=== PATIENT | male | born 1985 | race Caucasian/White ===

== ENCOUNTER 2017-11-10 07:21 | Inpatient (IN) | payer OTHER ==
[~2017-11-10] VITALS: Ht 182.9 cm; Wt 68.4 kg
[~2017-11-10 07:21] MED LIST: ACET-1256; DAPT500I IV; INSDGIPEN SC; NVLGI
[2017-11-10] MEDS ORDERED: ONDANSETRON 8 MG/54 ML D5W IV STA (07:43)
[2017-11-10] MEDS ORDERED: SODIUM CHLORIDE 0.9% 1000ML 1,000 ML IV STA (07:43)
[2017-11-10] MEDS ORDERED: NovoLIN-R INSULIN PER UNIT CHARGE SQ STA (08:02)
--- NOTE | 2017-11-10 08:11 | DIAGNOSTIC IMAGING REPORT ---
CHEST ONE VIEW PORTABLE HISTORY: 32 years-old Male EVALUATE ALTERED MENTAL STATUS/WEAKNESS acute altered mental status COMPARISON: Chest radiographs 07/24/2016 TECHNIQUE: Portable AP view of the chest FINDINGS: The cardiomediastinal and hilar silhouettes are within normal limits. There is no pneumothorax, pleural effusion, focal airspace consolidation or overt pulmonary edema. The bones of the chest appear grossly intact. IMPRESSION: No acute process. The above report was generated using voice recognition software. It may contain grammatical, syntax or spelling errors. Electronically signed by: Jorge George M.D. 11/10/2017 8:10 AM Dictated Date/Time: 11/10/2017 8:10 AM
[2017-11-10] MEDS ORDERED: INSU100I SC (08:13)
[2017-11-10 08:21] LABS: BASO % 0.5 %; BASO ABS # 0.05 K/uL (0-0.2); HEMATOCRIT 34.2 % (42-52); HEMOGLOBIN 11.6 g/dL (14.0-18.0); IG# 0.04 K/uL (0.00-0.02); LYMPH % 15.8 %; MEAN CELL VOLUME 87.5 fL (80-100); MEAN CORPUSCULAR HEMOGLOBIN 29.7 pg (25-34); MEAN CORPUSCULAR HGB CONC 33.9 g/dl (32-36); MEAN PLATELET VOLUME 8.4 fL (7.4-10.4); MONO % 7.4 %; MONO ABS # 0.75 K/uL (0.11-0.59); NEUT % 73.9 %; PLATELET COUNT 339 K/uL (130-400); RED CELL DISTRIBUTION WIDTH CV 12.8 % (11.5-14.5); WHITE BLOOD COUNT 10.14 K/uL (4.8-10.8)
[2017-11-10 08:47] LABS: ALBUMIN 2.6 gm/dl (3.4-5.0); ALKALINE PHOSPHATASE 161 U/L (45-117); ALT/SGPT 54 U/L (12-78); AST/SGOT 31 U/L (15-37); BLOOD UREA NITROGEN 15 mg/dl (7-18); CALCIUM 8.9 mg/dl (8.5-10.1); CARBON DIOXIDE 27 mmol/L (21-32); CKMB 0.9 ng/ml (0.5-3.6); CREATININE 0.72 mg/dl (0.60-1.40); GLUCOSE 427 mg/dl (70-99); LIPASE 90 U/L (73-393); POTASSIUM 4.3 mmol/L (3.5-5.1); SODIUM 133 mmol/L (136-145); TOTAL PROTEIN 6.5 gm/dl (6.4-8.2)
[2017-11-10] MEDS ORDERED: CEFTRIAXONE SOD INJ 1 GM ADDVIAL IV STA (10:11)
--- NOTE | 2017-11-10 10:53 | DIAGNOSTIC IMAGING REPORT ---
ABD/PELVIS WITHOUT FOR STONE HISTORY: 32 years-old Male r/o ureteral stone acute bilateral flank pain with concern for renal calculi. COMPARISON: CT abdomen and pelvis 07/26/2016 TECHNIQUE: Multiple axial CT images of the abdomen and pelvis were obtained without contrast. A dose lowering technique was used consistent with the principals of ROBYN. FINDINGS: Minimal dependent subsegmental bibasilar atelectasis. There is no pneumatosis or pneumoperitoneum identified. Imaged inferior cardiac chambers are unremarkable. Trace pericardial effusion. Decreased attenuation of the cardiac blood pool suggests anemia. Indeterminate 6 mm low attenuating lesion of the hepatic dome is noted. Statistically this would favor a cyst or hemangioma. The liver is otherwise unremarkable. The spleen, pancreas and adrenal glands are within normal limits. The gallbladder is also unremarkable. There is mild dilation of the left ureter which extends to the level of the urinary bladder. No obstructing calculus or lesion identified. There is mild nonspecific bilateral perinephric stranding. Right kidney and right ureter are unremarkable. Mild/moderate circumferential wall thickening of the urinary bladder is noted with mild perivesicular stranding. The aorta is normal in course and caliber. There is no bulky adenopathy. Small sliding-type hiatal hernia is noted with circumferential wall thickening of the distal esophagus. There is no bowel obstruction identified. Mild nonspecific rectal wall thickening. Trace free fluid within the right hemipelvis. The appendix is not definitively identified. Soft tissues are unremarkable. Bones appear intact. IMPRESSION: 1. Mild dilation of the left ureter extending to the urinary bladder is noted without obstructing calculus or lesion identified. Differential considerations would include ureteritis or sequela of recently passed calculus. Additionally, there is wall thickening of the urinary bladder with mild perivesicular stranding suspicious for cystitis. These findings should be correlated with urinalysis. 2. Mild nonspecific free fluid of the right hemipelvis. 3. Small sliding-type hiatal hernia with wall thickening of the distal esophagus. The above report was generated using voice recognition software. It may contain grammatical, syntax or spelling errors. Electronically signed by: Jorge George M.D. 11/10/2017 10:52 AM Dictated Date/Time: 11/10/2017 10:44 AM
[2017-11-10] MEDS ORDERED: INSULIN HUMAN REGULAR SC SCH (11:00)
--- NOTE | 2017-11-10 11:53 | EMERGENCY ROOM VISIT NOTE ---
History Report prepared by Darrenibsu: Lucila Xiao Under the Supervision of: Dr. Tc Martin D.O. First contact with patient: 07:34 Chief Complaint: HYPERGLYCEMIA Stated Complaint: HIGH SUGAR, VOMITING, BACK PAIN Nursing Triage Summary: insulin dependant diabetic. does not check blood sugars. "I just dose myself with some. I never check my blood sugars." took 12 units after dinner last night History of Present Illness The patient is a 32 year old male who presents to the Emergency Room with complaints of intermittent vomiting beginning 12 hours ago. The patient reports nausea, vomiting, diarrhea, and lower back pain. His symptoms persisted throughout the night. He states that he has had numerous episodes of vomiting and 1-2 episodes of diarrhea. The patient is IDDM. He states that he does not check his sugars and just takes 12-15 units on insulin with each meal. He denies fevers, sore throat, rhinorrhea, cough, and abdominal pain. 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 A total of 10 systems reviewed and were otherwise negative. Past Medical & Surgical Medical Problems: (1) Chronic diarrhea (2) Complicated UTI (urinary tract infection) (3) DKA, type 1 (4) IDDM (insulin dependent diabetes mellitus) (5) MRSA (methicillin resistant Staphylococcus aureus) septicemia (6) Orchitis and epididymitis Family History No pertinent history stated. Social History Smoking Status: Never Smoker Marital Status: single Occupation Status: employed Current/Historical Medications Scheduled Insulin Lispro (Human) (Humalog), 1 DOSE SC UD Allergies Coded Allergies: No Known Allergies (Unverified , 11/10/17) Physical Exam Vital Signs Date Time Temp Pulse Resp B/P (MAP) Pulse Ox O2 Delivery O2 Flow Rate FiO2 11/10/17 12:14 113 11/10/17 11:50 106 18 114/62 95 Room Air 11/10/17 09:15 114 20 137/88 98 11/10/17 08:05 106 11/10/17 07:31 36.7 109 18 100/64 97 Room Air Physical Exam CONSTITUTIONAL/VITAL SIGNS: Reviewed / noted above. GENERAL: Non-toxic in appearance. INTEGUMENTARY: Warm, dry, and [place]. HEAD: Normocephalic. EYES: without scleral icterus or trauma. ENT/OROPHARYNX: clear and moist. LYMPHADENOPATHY/NECK: Is supple without lymphadenopathy or meningismus. RESPIRATORY: Lungs clear and equal. CARDIOVASCULAR: Regular rate and rhythm. GI/ABDOMEN: Soft and nontender. No organomegaly or pulsatile mass. No rebound or guarding. Normal bowel sounds. EXTREMITIES: Warm and well perfused. BACK: No CVA tenderness. NEUROLOGICAL: Intact without focal deficits. PSYCHIATRIC: normal affect. MUSCULOSKELETAL: Normally developed with good muscle tone. Medical Decision & Procedures ER Provider Diagnostic Interpretation: Radiology results as stated below per my review and radiologist interpretation: CHEST ONE VIEW PORTABLE HISTORY: 32 years-old Male EVALUATE ALTERED MENTAL STATUS/WEAKNESS acute altered mental status COMPARISON: Chest radiographs 07/24/2016 TECHNIQUE: Portable AP view of the chest FINDINGS: The cardiomediastinal and hilar silhouettes are within normal limits. There is no pneumothorax, pleural effusion, focal airspace consolidation or overt pulmonary edema. The bones of the chest appear grossly intact. IMPRESSION: No acute process. The above report was generated using voice recognition software. It may contain grammatical, syntax or spelling errors. Electronically signed by: Jorge George M.D. 11/10/2017 8:10 AM Dictated Date/Time: 11/10/2017 8:10 AM ABD/PELVIS WITHOUT FOR STONE HISTORY: 32 years-old Male r/o ureteral stone acute bilateral flank pain with concern for renal calculi. COMPARISON: CT abdomen and pelvis 07/26/2016 TECHNIQUE: Multiple axial CT images of the abdomen and pelvis were obtained without contrast. A dose lowering technique was used consistent with the principals of ROBYN. FINDINGS: Minimal dependent subsegmental bibasilar atelectasis. There is no pneumatosis or pneumoperitoneum identified. Imaged inferior cardiac chambers are unremarkable. Trace pericardial effusion. Decreased attenuation of the cardiac blood pool suggests anemia. Indeterminate 6 mm low attenuating lesion of the hepatic dome is noted. Statistically this would favor a cyst or hemangioma. The liver is otherwise unremarkable. The spleen, pancreas and adrenal glands are within normal limits. The gallbladder is also unremarkable. There is mild dilation of the left ureter which extends to the level of the urinary bladder. No obstructing calculus or lesion identified. There is mild nonspecific bilateral perinephric stranding. Right kidney and right ureter are unremarkable. Mild/moderate circumferential wall thickening of the urinary bladder is noted with mild perivesicular stranding. The aorta is normal in course and caliber. There is no bulky adenopathy. Small sliding-type hiatal hernia is noted with circumferential wall thickening of the distal esophagus. There is no bowel obstruction identified. Mild nonspecific rectal wall thickening. Trace free fluid within the right hemipelvis. The appendix is not definitively identified. Soft tissues are unremarkable. Bones appear intact. IMPRESSION: 1. Mild dilation of the left ureter extending to the urinary bladder is noted without obstructing calculus or lesion identified. Differential considerations would include ureteritis or sequela of recently passed calculus. Additionally, there is wall thickening of the urinary bladder with mild perivesicular stranding suspicious for cystitis. These findings should be correlated with urinalysis. 2. Mild nonspecific free fluid of the right hemipelvis. 3. Small sliding-type hiatal hernia with wall thickening of the distal esophagus. The above report was generated using voice recognition software. It may contain grammatical, syntax or spelling errors. Electronically signed by: Jorge George M.D. 11/10/2017 10:52 AM Dictated Date/Time: 11/10/2017 10:44 AM Laboratory Results 11/10/17 07:54 Red Blood Count 3.91, Mean Corpuscular Volume 87.5, Mean Corpuscular Hemoglobin 29.7, Mean Corpuscular Hemoglobin Concent 33.9, Mean Platelet Volume 8.4, Neutrophils (%) (Auto) 73.9, Lymphocytes (%) (Auto) 15.8, Monocytes (%) (Auto) 7.4, Eosinophils (%) (Auto) 2.0, Basophils (%) (Auto) 0.5, Neutrophils # (Auto) 7.50, Lymphocytes # (Auto) 1.60, Monocytes # (Auto) 0.75, Eosinophils # (Auto) 0.20, Basophils # (Auto) 0.05 11/10/17 07:54 Test 11/10/17 07:54 11/10/17 09:17 11/10/17 12:24 White Blood Count 10.14 K/uL (4.8-10.8) Red Blood Count 3.91 M/uL (4.7-6.1) Hemoglobin 11.6 g/dL (14.0-18.0) Hematocrit 34.2 % (42-52) Mean Corpuscular Volume 87.5 fL (80-100) Mean Corpuscular Hemoglobin 29.7 pg (25-34) Mean Corpuscular Hemoglobin Concent 33.9 g/dl (32-36) Platelet Count 339 K/uL (130-400) Mean Platelet Volume 8.4 fL (7.4-10.4) Neutrophils (%) (Auto) 73.9 % Lymphocytes (%) (Auto) 15.8 % Monocytes (%) (Auto) 7.4 % Eosinophils (%) (Auto) 2.0 % Basophils (%) (Auto) 0.5 % Neutrophils # (Auto) 7.50 K/uL (1.4-6.5) Lymphocytes # (Auto) 1.60 K/uL (1.2-3.4) Monocytes # (Auto) 0.75 K/uL (0.11-0.59) Eosinophils # (Auto) 0.20 K/uL (0-0.5) Basophils # (Auto) 0.05 K/uL (0-0.2) RDW Standard Deviation 41.0 fL (36.4-46.3) RDW Coefficient of Variation 12.8 % (11.5-14.5) Immature Granulocyte % (Auto) 0.4 % Immature Granulocyte # (Auto) 0.04 K/uL (0.00-0.02) Urine Color YELLOW Urine Appearance CLOUDY (CLEAR) Urine pH 5.5 (4.5-7.5) Urine Specific [place] 1.035 (1.000-1.030) Urine Protein 1+ (NEG) Urine Glucose (UA) 3+ (NEG) Urine Ketones 3+ (NEG) Urine Occult Blood 2+ (NEG) Urine Nitrite NEG (NEG) Urine Bilirubin NEG (NEG) Urine Urobilinogen NEG (NEG) Urine Leukocyte Esterase TRACE (NEG) Urine WBC (Auto) >30 /hpf (0-5) Urine RBC (Auto) >30 /hpf (0-4) Urine Hyaline Casts (Auto) 5-10 /lpf (0-5) Urine Epithelial Cells (Auto) 5-10 /lpf (0-5) Urine Bacteria (Auto) 3+ (NEG) Anion Gap 11.0 mmol/L (3-11) Est Creatinine Clear Calc Drug Dose 142.5 ml/min Estimated GFR () 143.1 Estimated GFR (Non- 123.4 BUN/Creatinine Ratio 21.3 (10-20) Calcium Level 8.9 mg/dl (8.5-10.1) Magnesium Level 1.9 mg/dl (1.8-2.4) Total Bilirubin 0.5 mg/dl (0.2-1) Direct Bilirubin < 0.1 mg/dl (0-0.2) Aspartate Amino Transf (AST/SGOT) 31 U/L (15-37) Alanine Aminotransferase (ALT/SGPT) 54 U/L (12-78) Alkaline Phosphatase 161 U/L (45-117) Total Creatine Kinase 108 U/L (39-308) Creatine Kinase MB 0.9 ng/ml (0.5-3.6) Creatine Kinase MB Ratio 0.8 (0-3.0) Total Protein 6.5 gm/dl (6.4-8.2) Albumin 2.6 gm/dl (3.4-5.0) Lipase 90 U/L (73-393) Beta-Hydroxybutyric Acid 37.43 mg/dL (0.2-2.81) Bedside Glucose 278 mg/dl (70-99) Laboratory results as stated above per my review. Medications Administered Medications (Trade) Dose Ordered Sig/Stephen Route Start Time Stop Time Status Last Admin Dose Admin Sodium Chloride 1,000 ml @ 999 mls/hr Q1H1M STAT IV 11/10/17 07:43 11/10/17 08:43 DC 11/10/17 07:58 999 MLS/HR Ondansetron HCl (Zofran 8mg Iv) 8 mg NOW STAT IV 11/10/17 07:43 11/10/17 07:46 DC 11/10/17 08:15 8 MG Insulin Human Regular (novoLIN-R U-100 PER UNIT) 6 units NOW STAT SQ 11/10/17 08:02 11/10/17 08:03 DC 11/10/17 08:10 6 UNITS Ceftriaxone Sodium (Rocephin Inj) 1 gm NOW STAT IV 11/10/17 10:11 11/10/17 10:12 DC 11/10/17 10:38 1 GM ECG Per My Interpretation Indication: other Rate (beats per minute): 105 Rhythm: sinus tachycardia Findings: no acute ischemic change, other (no ST elevations) ED Course 0734: Previous medical records were reviewed. The patient was evaluated in room A10. A complete history and physical examination was performed. 0743: Zofran 8 mg IV, NSS 1000 ml @ 999 mls/hr IV 0802: Insulin Human Regular 6 units SQ 1011: Rocephin 1 gm IV 1142: I reassessed the patient at this time. He is feeling better and resting comfortably. I discussed the results and treatment plan with the patient. I answered all pertaining questions that he had. He expressed understanding and verbalized agreement. 1148: I spoke with Dr. Joey Sierar. We discussed the patients case. The patient will be evaluated by the [facility] for further management. Medical Decision Differential diagnosis: Etiologies such as gastroenteritis, food borne illness, infections, appendicitis , diverticulitis, inflammatory bowel disease, obstruction, GI bleed, biliary pathology, as well as others were entertained. This is a 32-year-old male who presents to the ED with a chief complaint of high blood sugars, nausea, vomiting and a little diarrhea. The patient states that his symptoms started last night around 7 PM. He states that he has vomited about 4 times since that time and had one episode of diarrhea. He denies any abdominal pains. Denies any sore throat, upper respiratory symptoms , chest pains or fevers. He states that he does not check his blood sugar routinely. He does use regular insulin, 12-15 units before meals. He has been a diabetic, type I since 2003. The patient has no additional specific complaints. His vital signs revealed a slight tachycardia with a heart rate of 109. 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 The patient has a negative chest x-ray. EKG shows a sinus tachycardia rate of 105 CBC is normal, complete metabolic panel reveals a glucose of 427. Anion gap was normal. Lipase is negative. LFTs were normal. Urinalysis suggests UTI. A CT scan of the abdomen and pelvis reveals findings suggesting cystitis and ureteritis. The patient was given 6 units of subcutaneous insulin for his hyperglycemia. He was given IV fluids and IV Zofran as well as IV Rocephin. He did have some additional dry heaves during his stay despite the Zofran. He will be seen by the hospitalist service for further inpatient evaluation and care. Medication Reconcilliation Current Medication List: was personally reviewed by me Blood Pressure Screening Patient's blood pressure: Elevated blood pressure Blood pressure disposition: Referred to PCP Consults Time Called: 1141 Consulting Physician: Dr. Joey Sierra Returned Call: [address] Joey Sierra. We discussed the patients case. The patient will be evaluated by the [facility] for further management. Impression Primary Impression: UTI (urinary tract infection) Additional Impressions: Vomiting Type 1 diabetes Hyperglycemia Scribe Attestation The scribe's documentation has been prepared under my direction and personally reviewed by me in its entirety. I confirm that the note above accurately reflects all work, treatment, procedures, and medical decision making performed by me. Departure Information Dispostion Being Evaluated By Hospitalist Referrals No Doctor, Assigned (PCP) Patient Instructions My [facility] Problem Qualifiers
[2017-11-10] MEDS ORDERED: GLUCOSE 40% GEL 15 GM TUBE PO PRN (12:30)
[2017-11-10] MEDS ORDERED: ALUMINUM/MAGNESIUM/SIMETH (MAALOX MAX) 30 ML UDC PO PRN (12:30)
[2017-11-10] MEDS ORDERED: ONDANSETRON INJ 2 MG/ML 2 ML VIAL IV PRN ×2 (12:30)
[2017-11-10] MEDS ORDERED: DEXTROSE 50% 50 ML SYR IV PRN (12:30)
[2017-11-10] MEDS ORDERED: GLUCAGON FOR INJ 1 MG VIAL SQ PRN (12:30)
[2017-11-10] MEDS ORDERED: DC ALL PREVIOUSLY ORDERED DIABETES MEDS ONE (12:30)
[2017-11-10] MEDS ORDERED: ACETAMINOPHEN 325 MG TAB PO PRN (12:30)
[2017-11-10] MEDS ORDERED: POLYETHYLENE (MIRALAX) 17 GM PACK PO PRN (12:30)
[2017-11-10] MEDS ORDERED: MAGNESIUM HYDROXIDE SUSP 30 ML UDC PO PRN (12:30)
[2017-11-10] MEDS ORDERED: GLUCOSE 10 TABS/TUBE PO PRN (12:30)
[2017-11-10] MEDS ORDERED: ZOLPIDEM TARTRATE 5 MG TAB PO PRN ×2 (12:30)
[2017-11-10 12:55] VITALS: O2SAT 95; BMI 20.5
--- NOTE | 2017-11-10 12:58 | History and Physical ---
History & Physical Date & Time of Service: Nov 10, 2017 at 12:39 Chief Complaint: High Sugar, Vomiting, Back Pain Primary Care Physician: Jaz Bates D.O. History of Present Illness Source: patient, hospital records 32 years old man with IDDM type I since he was 18 years old. he is currently on insulin sliding scale only. he takes about 12-15 units on insulin with each meal 3 days ago he started feeling sick, has some burning sensation in urine. last night he vomited X 4 , no blood , no abdominal pain. he has a base line diarrhea X 10 every day , no blood. s/p colonoscopy and EGD in the past. lives w his mom he does not smoke or drink family Hx of DMI in his father at age of 18 Social History Smoking Status: Never Smoker Marital Status: single Housing status: lives with family Occupational Status: employed Allergies Coded Allergies: No Known Allergies (Unverified , 11/10/17) Home Medications Scheduled Insulin Lispro (Human) (Humalog), 1 DOSE SC UD Review of Systems Review of system Constitutional: No fever / no chills / no sweats / positive weakness and fatigue Eyes: no blurring of vision / no eye pain / no discharge / no redness ENT: no hearing loss / no epistaxis /no swallowing problems Respiratory: no cough / no wheezing / no SOB / no hemoptysis Cardiovascular: no Chest pain / no lower extremity edema / no palpitation Abdomen: no pain / no nausea / positive diarrhea and vomiting / no constipation Musculoskeletal: no joint pain / no muscle pain / no joint swelling Genitourinary: positive dysuria / no incontinence / no urinary retention Neurologic: no focal weakness / no numbness/tingling / no ataxia Psychiatric: no depression symptoms / no anxiety / no insomnia Endocrine: no excessive thirst / no excessive urination Hematologic: no abnormal bleeding / no bruising / no LN swelling Skin: No rash / no pallor Physical Exam Vital Signs Date Time Temp Pulse Resp B/P (MAP) Pulse Ox O2 Delivery O2 Flow Rate FiO2 11/10/17 12:14 113 11/10/17 11:50 106 18 114/62 95 Room Air 11/10/17 09:15 114 20 137/88 98 11/10/17 08:05 106 11/10/17 07:31 36.7 109 18 100/64 97 Room Air Physical examination General patient appears to be comfortable, not in acute distress HEENT: Atraumatic , normocephalic /no jaundice /no pallor /anicteric /no dry mucous membrane /normal external ear inspection Neck: Supple /no swelling /central trach Heart: S1/S2 normal/regular rate and rhythm/no gallop /no rub /no murmur Lungs: Clear to auscultation bilaterally/normal chest with expansion/no rhonchi/ no rales/no wheezing/no use of accessory muscles of respiration Abdomen: Soft/nontender/no guarding/no rebound/no organomegaly/no pulsatile mass Musculoskeletal: No swelling/no edema/no tenderness/normal range of motion Neuro exam: Awake alert oriented 3/cranial nerves II through XII appear to be intact/sensation intact/moves all extremities/no abnormal movements Psychiatric evaluation: No depressed mood/normal affect Skin: No rash on exposed skin area/no erythema Extremity: Normal pulse/no pitting edema/no clubbing or cyanosis Endocrine/lymphatic: No obvious lymphadenopathy /no lymphedema Diagnostics Laboratory Results Results Past 24 Hours Test 11/10/17 07:37 11/10/17 07:54 11/10/17 08:08 11/10/17 09:17 Range/Units Bedside Glucose 404 395 278 70-99 mg/dl White Blood Count 10.14 4.8-10.8 K/uL Red Blood Count 3.91 4.7-6.1 M/uL Hemoglobin 11.6 14.0-18.0 g/dL Hematocrit 34.2 42-52 % Mean Corpuscular Volume 87.5 80-100 fL Mean Corpuscular Hemoglobin 29.7 25-34 pg Mean Corpuscular Hemoglobin Concent 33.9 32-36 g/dl Platelet Count 339 130-400 K/uL Mean Platelet Volume 8.4 7.4-10.4 fL Neutrophils (%) (Auto) 73.9 % Lymphocytes (%) (Auto) 15.8 % Monocytes (%) (Auto) 7.4 % Eosinophils (%) (Auto) 2.0 % Basophils (%) (Auto) 0.5 % Neutrophils # (Auto) 7.50 1.4-6.5 K/uL Lymphocytes # (Auto) 1.60 1.2-3.4 K/uL Monocytes # (Auto) 0.75 0.11-0.59 K/uL Eosinophils # (Auto) 0.20 0-0.5 K/uL Basophils # (Auto) 0.05 0-0.2 K/uL RDW Standard Deviation 41.0 36.4-46.3 fL RDW Coefficient of Variation 12.8 11.5-14.5 % Immature Granulocyte % (Auto) 0.4 % Immature Granulocyte # (Auto) 0.04 0.00-0.02 K/uL Urine Color YELLOW Urine Appearance CLOUDY CLEAR Urine pH 5.5 4.5-7.5 Urine Specific [place] 1.035 1.000-1.030 Urine Protein 1+ NEG Urine Glucose (UA) 3+ NEG Urine Ketones 3+ NEG Urine Occult Blood 2+ NEG Urine Nitrite NEG NEG Urine Bilirubin NEG NEG Urine Urobilinogen NEG NEG Urine Leukocyte Esterase TRACE NEG Urine WBC (Auto) >30 0-5 /hpf Urine RBC (Auto) >30 0-4 /hpf Urine Hyaline Casts (Auto) 5-10 0-5 /lpf Urine Epithelial Cells (Auto) 5-10 0-5 /lpf Urine Bacteria (Auto) 3+ NEG Sodium Level 133 136-145 mmol/L Potassium Level 4.3 3.5-5.1 mmol/L Chloride Level 95 98-107 mmol/L Carbon Dioxide Level 27 21-32 mmol/L Anion Gap 11.0 3-11 mmol/L Blood Urea Nitrogen 15 7-18 mg/dl Creatinine 0.72 0.60-1.40 mg/dl Est Creatinine Clear Calc Drug Dose 142.5 ml/min Estimated GFR () 143.1 Estimated GFR (Non- 123.4 BUN/Creatinine Ratio 21.3 10-20 Random Glucose 427 70-99 mg/dl Calcium Level 8.9 8.5-10.1 mg/dl Magnesium Level 1.9 1.8-2.4 mg/dl Total Bilirubin 0.5 0.2-1 mg/dl Direct Bilirubin < 0.1 0-0.2 mg/dl Aspartate Amino Transf (AST/SGOT) 31 15-37 U/L Alanine Aminotransferase (ALT/SGPT) 54 12-78 U/L Alkaline Phosphatase 161 45-117 U/L Total Creatine Kinase 108 39-308 U/L Creatine Kinase MB 0.9 0.5-3.6 ng/ml Creatine Kinase MB Ratio 0.8 0-3.0 Total Protein 6.5 6.4-8.2 gm/dl Albumin 2.6 3.4-5.0 gm/dl Lipase 90 73-393 U/L Beta-Hydroxybutyric Acid 37.43 0.2-2.81 mg/dL Test 11/10/17 12:24 Range/Units Microbiology Results 11/10/17 Blood Culture, Ordered Pending 11/10/17 Blood Culture, Ordered Pending 11/10/17 Urine Culture, Received Pending Diagnostic Radiology IMPRESSION: 1. Mild dilation of the left ureter extending to the urinary bladder is noted without obstructing calculus or lesion identified. Differential considerations would include ureteritis or sequela of recently passed calculus. Additionally, there is wall thickening of the urinary bladder with mild perivesicular stranding suspicious for cystitis. These findings should be correlated with urinalysis. 2. Mild nonspecific free fluid of the right hemipelvis. 3. Small sliding-type hiatal hernia with wall thickening of the distal esophagus. Impression Assessment and Plan 32 years old man with IDDM type I since he was 18 years old. has chronic diarrhea presented to ED with vomiting and UTI Assessment Complicated UTI POA with possible left early pyelo gastritis/GERD w thickening of esophagus on CT scan IDDM type I , with uncontrolled blood sugar / hyperglycemia chronic diarrhea Plan: admit to med surge CT abd reviewed , mild dilatation of left ureter but no hydro, urinary bladder with mild perivesicular stranding confirming cystitis CTX/lactobacillus urine and blood Cx sliding scale insulin and extractions technician to adjust insulin regimen nurses educator consult zofran for vomiting pepcid for esophagitis/gastritis lovenox for dvt prophylaxis Resuscitation Status VTE Prophylaxis Will order VTE Prophylaxis: Yes
[2017-11-10] MEDS ORDERED: PHARMACY GLYCEMIC MGMT CONSULT PRN (13:30)
[2017-11-10 14:35] LABS: INFLUENZA A PCR Neg for Influ A (NEG); INFLUENZA B PCR Neg for Influ B (NEG)
--- NOTE | 2017-11-10 14:39 | Pharmacy Progress Note ---
Glycemic Control Intl Consult Date of Service Nov 10, 2017. Scope Glycemic Pharmacist consulted by Dr Gabriel on 11/10/17 for glycemic control and to write orders per [facility] inpatient glycemic control protocol Objective Weight (Kilograms): 68.400 Accuchecks BSG (last 24hrs): Test 11/10/17 07:37 11/10/17 07:54 11/10/17 08:08 11/10/17 09:17 Bedside Glucose 404 mg/dl (70-99) 395 mg/dl (70-99) 278 mg/dl (70-99) Random Glucose 427 mg/dl (70-99) Laboratory Data (last 24hrs) Test 11/10/17 07:54 11/10/17 12:24 Anion Gap 11.0 mmol/L BUN/Creatinine Ratio 21.3 Blood Urea Nitrogen 15 mg/dl Creatinine 0.72 mg/dl Potassium Level 4.3 mmol/L Sodium Level 133 mmol/L White Blood Count 10.14 K/uL Red Blood Count 3.91 M/uL Hemoglobin 11.6 g/dL Hematocrit 34.2 % Mean Corpuscular Volume 87.5 fL Mean Corpuscular Hemoglobin 29.7 pg Mean Corpuscular Hemoglobin Concent 33.9 g/dl Platelet Count 339 K/uL Mean Platelet Volume 8.4 fL Neutrophils (%) (Auto) 73.9 % Lymphocytes (%) (Auto) 15.8 % Monocytes (%) (Auto) 7.4 % Eosinophils (%) (Auto) 2.0 % Basophils (%) (Auto) 0.5 % Neutrophils # (Auto) 7.50 K/uL Lymphocytes # (Auto) 1.60 K/uL Monocytes # (Auto) 0.75 K/uL Eosinophils # (Auto) 0.20 K/uL Basophils # (Auto) 0.05 K/uL HbA1c Test 11/10/17 12:24 Recent Pertinent Medications Outpatient Anti-diabetic Regimen: * Humalog 10-15 units with lunch and dinner * A1c = 13.2 % 07/24/16 Risk Factors for Insulin Resistance: * Infection: UTI - currently on Rocephin * Diet: T1 DM Assessment & Plan ASSESSMENT: * Mr Nguyen is a 32 y/o M with a PMH of type 1 diabetes (diagnosed when he was 18 years old). I interviewed the patient whenever he was admitted. The patient denies taking Lantus at home. He states his physician (Dr Quinn in [place]) told him to stop it. He takes 10-15 units of Humalog with lunch and dinner ( does not really eat breakfast). The patient was previously hospitalized in July of 2016 for DKA.He received between 12-30 units of Lantus during that admission. The patient states he did not take the Lantus after that. He has not had an episode of DKA since. He rarely has hypoglycemia...did have one episode at nighttime but unsure what led to it. * Basically, patient takes at most 30 units of insulin a day and this keeps the patient out of DKA. Therefore, will start with 30 units of insulin per day and titrate upwards as appropriate. Divide this in half and will give Lantus 15 units now and then 15 daily starting tomorrow. Choose weight-based stress of 1- 2 for Novolog which also correlates with a total daily dose of 30 units. This is about 0.5 units/kg which is a reasonable starting point for a type 1 diabetic. Chose goal range of 140-180 mg/dL as do not want to be too aggressive with patient's insulin dosing (he appears to be sensitive as 6 units of regular decreased patient's blood sugar from 400 to 230 mg/dL). PLAN FOR INPATIENT GLYCEMIC CONTROL: * Basal insulin with LANTUS 15 units SQ now and then qAM * Correctional Insulin with NOVOLOG per scale ACHS or Q6hrs while NPO * Goal Range: Low 140 mg/dL - High 180 mg/dL * Correction Factor: 45 mg/dL/unit * Nutritional / Prandial insulin per carb ratio of 1 unit per 15 grams CHO consumed * Please note that the plan above was derived based on current level of insulin resistance and hospital stress. These recommendations are appropriate for inpatient admission only. Plan of care upon discharge will need to be reassessed to avoid potential outpatient hypo/hyperglycemia. Thank you.
[2017-11-10] MEDS: INSULIN ASPART 100 UNITS/ML 3 ML PEN SC SCH ×3 (14:48→21:03)
[2017-11-10] MEDS: INSULIN GLARGINE SOLOSTAR 100 UNITS/ML 3 ML PEN SC SCH (14:50)
[2017-11-10 15:36] LABS: INR 0.9 (0.9-1.1)
[2017-11-10 15:43] VITALS: BMI 20.5
[2017-11-10 16:12] VITALS: BP 103/69; PULSE 106; TEMP 36.8; O2SAT 99
[2017-11-10] MEDS: LACTOBACILLUS ACIDOPHILUS (FLORANEX) TAB PO SCH (16:21)
[2017-11-10] MEDS: FAMOTIDINE IV INJ 20 MG in SYRINGE 3 ML IV SCH (16:21)
[2017-11-10] MEDS: ENOXAPARIN 40 MG/0.4 ML SYR SQ SCH (21:00)
[2017-11-11 00:26] VITALS: BP 124/78; PULSE 98; TEMP 36.7; O2SAT 90
[2017-11-11] MEDS: FAMOTIDINE IV INJ 20 MG in SYRINGE 3 ML IV SCH ×2 (04:11→16:28)
[2017-11-11 06:48] LABS: HEMOGLOBIN A1C 12.2 % (4.5-5.6)
[2017-11-11 07:13] VITALS: BP 101/64; PULSE 93; TEMP 36.7; O2SAT 98
[2017-11-11] MEDS: LACTOBACILLUS ACIDOPHILUS (FLORANEX) TAB PO SCH ×3 (07:16→16:28)
[2017-11-11 08:06] LABS: BASO % 0.4 %; BASO ABS # 0.03 K/uL (0-0.2); EOS % 3.4 %; EOS ABS # 0.29 K/uL (0-0.5); HEMATOCRIT 32.6 % (42-52); HEMOGLOBIN 10.9 g/dL (14.0-18.0); IG# 0.03 K/uL (0.00-0.02); LYMPH % 21.3 %; LYMPH ABS # 1.81 K/uL (1.2-3.4); MEAN CELL VOLUME 88.6 fL (80-100); MEAN CORPUSCULAR HEMOGLOBIN 29.6 pg (25-34); MEAN CORPUSCULAR HGB CONC 33.4 g/dl (32-36); MONO ABS # 0.77 K/uL (0.11-0.59); NEUT % 65.5 %; NEUT ABS # 5.58 K/uL (1.4-6.5); PLATELET COUNT 336 K/uL (130-400); WHITE BLOOD COUNT 8.51 K/uL (4.8-10.8)
[2017-11-11] MEDS: INSULIN ASPART 100 UNITS/ML 3 ML PEN SC SCH ×4 (08:37→21:22)
[2017-11-11] MEDS: INSULIN GLARGINE SOLOSTAR 100 UNITS/ML 3 ML PEN SC SCH (08:38)
[2017-11-11 09:02] LABS: ALBUMIN 2.2 gm/dl (3.4-5.0); ALKALINE PHOSPHATASE 150 U/L (45-117); ALT/SGPT 42 U/L (12-78); AST/SGOT 27 U/L (15-37); BLOOD UREA NITROGEN 9 mg/dl (7-18); CALCIUM 8.5 mg/dl (8.5-10.1); CARBON DIOXIDE 28 mmol/L (21-32); CREATININE 0.52 mg/dl (0.60-1.40); GLUCOSE 173 mg/dl (70-99); LIPASE 82 U/L (73-393); PHOSPHORUS 2.8 mg/dl (2.5-4.9); POTASSIUM 3.7 mmol/L (3.5-5.1); SODIUM 136 mmol/L (136-145)
[2017-11-11] MEDS ORDERED: CEFTRIAXONE SOD INJ 1 GM in DEXTROSE 5% ADD-VANTAGE 50ML 50 ML IV SCH (11:00)
--- NOTE | 2017-11-11 12:40 | Hospitalist Progress Note ---
Hospitalist Progress Note Date of Service Nov 11, 2017. Subjective Pt evaluation today including: conversation w/ patient, physical exam, lab review, review of studies, review of inpatient medication list Voiding: no voiding problems Patient resting in bed. Feeling slightly improved since admission. Diffuse body aches. Eating and drinking OK. +chronic diarrhea- has had workup in the past which was unremarkable. epigastric burning- denies ETOH use, smoking history, excessive coffee, NSAID use, or h/o GERD. Patient denies any fever, chills, sweats, lightheadedness, dizziness, vision changes, CP, palpitations, edema, SOB, wheezing, cough, nausea, vomiting, diarrhea, urinary symptoms, melena, numbness/tingling, weakness, anxiety/ depression, active bleeding, or new skin discoloration/changes. Medications Current Inpatient Medications Medications (Trade) Dose Ordered Sig/Stephen Route Start Time Stop Time Status Last Admin Dose Admin Enoxaparin Sodium (Lovenox Inj) 40 mg Q24H SQ 11/10/17 21:00 12/10/17 20:59 Acetaminophen (Tylenol Tab) 650 mg Q4H PRN PO 11/10/17 12:30 12/10/17 12:29 Al Hydrox/Mg Hydrox/Simethicone (Maalox Max Susp) 15 ml Q4H PRN PO 11/10/17 12:30 12/10/17 12:29 Magnesium Hydroxide (Milk Of Magnesia Susp) 30 ml Q6H PRN PO 11/10/17 12:30 12/10/17 12:29 Polyethylene (Miralax Powder Packet) 17 gm DAILY PRN PO 11/10/17 12:30 12/10/17 12:29 Zolpidem Tartrate (Ambien Tab) 5 mg HSZ PRN PO 11/10/17 12:30 12/10/17 12:29 Ondansetron HCl (Zofran Inj) 4 mg Q6H PRN IV 11/10/17 12:30 12/10/17 12:29 Insulin Aspart (novoLOG ASPART) SLIDING SCALE If C... ACHS SC 11/10/17 14:30 12/10/17 14:29 11/11/17 08:37 1 UNITS Glucose (Glucose 40% Gel) 15-30 GRAMS 15 GRAMS... UD PRN PO 11/10/17 12:30 12/10/17 12:29 Glucose (Glucose Chew Tab) 4-8 Tablets 4 Tabl... UD PRN PO 11/10/17 12:30 12/10/17 12:29 Dextrose (Dextrose 50% 50ML Syringe) 25-50ML OF 50% DW IV FOR... UD PRN IV 11/10/17 12:30 12/10/17 12:29 Glucagon (Glucagon Inj) 1 mg UD PRN SQ 11/10/17 12:30 12/10/17 12:29 Miscellaneous Information (Consult Glycemic Management Pharmacy) 1 ea UD PRN N/A 11/10/17 13:30 12/10/17 13:29 Famotidine 20 mg/ Syringe 5 ml @ 2.5 mls/min Q12H IV 11/10/17 16:00 12/10/17 15:59 11/11/17 04:11 2.5 MLS/MIN Ceftriaxone Sodium 1 gm/ Dextrose 50 ml @ 100 mls/hr Q24H IV 11/11/17 11:00 11/21/17 10:59 11/11/17 10:34 100 MLS/HR Lactobacillus Acidophilus (Floranex Tab) 4 tab TIDM PO 11/10/17 17:00 12/10/17 17:59 11/11/17 11:31 4 TAB Insulin Glargine (Lantus Solostar Pen) 15 units DAILY SC 11/10/17 15:00 12/10/17 14:59 11/11/17 08:38 15 UNITS Objective Vital Signs Date Time Temp Pulse Resp B/P (MAP) Pulse Ox O2 Delivery O2 Flow Rate FiO2 11/11/17 08:00 Room Air 11/11/17 07:13 36.7 93 16 101/64 (76) 98 Room Air 11/11/17 00:26 36.7 98 18 124/78 (93) 90 Room Air 11/11/17 00:01 Room Air 11/10/17 16:12 36.8 106 18 103/69 (80) 99 Room Air 11/10/17 16:00 Room Air 11/10/17 12:55 95 Room Air Physical Exam General Appearance: WD/WN, no apparent distress Eyes: normal inspection, PERRL ENT: hearing grossly normal Neck: supple Respiratory/Chest: lungs clear, no respiratory distress, no accessory muscle use Cardiovascular: regular rate, rhythm Abdomen: normal bowel sounds, non tender, soft Extremities: no pedal edema, no calf tenderness Neurologic/Psychiatric: alert, normal mood/affect, oriented x 3 Skin: normal color, warm/dry, no rash Laboratory Results Last 24 Hours Test 11/10/17 12:43 11/10/17 13:15 11/10/17 14:40 11/10/17 16:46 Bedside Glucose 233 mg/dl 359 mg/dl 178 mg/dl Influenza Type A (RT-PCR) Neg for Influ A Influenza Type B (RT-PCR) Neg for Influ B Test 11/10/17 19:38 11/11/17 06:05 11/11/17 07:18 11/11/17 07:47 Bedside Glucose 135 mg/dl 175 mg/dl White Blood Count 8.51 K/uL Red Blood Count 3.68 M/uL Hemoglobin 10.9 g/dL Hematocrit 32.6 % Mean Corpuscular Volume 88.6 fL Mean Corpuscular Hemoglobin 29.6 pg Mean Corpuscular Hemoglobin Concent 33.4 g/dl Platelet Count 336 K/uL Mean Platelet Volume 8.0 fL Neutrophils (%) (Auto) 65.5 % Lymphocytes (%) (Auto) 21.3 % Monocytes (%) (Auto) 9.0 % Eosinophils (%) (Auto) 3.4 % Basophils (%) (Auto) 0.4 % Neutrophils # (Auto) 5.58 K/uL Lymphocytes # (Auto) 1.81 K/uL Monocytes # (Auto) 0.77 K/uL Eosinophils # (Auto) 0.29 K/uL Basophils # (Auto) 0.03 K/uL RDW Standard Deviation 42.0 fL RDW Coefficient of Variation 13.0 % Immature Granulocyte % (Auto) 0.4 % Immature Granulocyte # (Auto) 0.03 K/uL Sodium Level 136 mmol/L Potassium Level 3.7 mmol/L Chloride Level 102 mmol/L Carbon Dioxide Level 28 mmol/L Anion Gap 6.0 mmol/L Blood Urea Nitrogen 9 mg/dl Creatinine 0.52 mg/dl Est Creatinine Clear Calc Drug Dose 197.3 ml/min Estimated GFR () > 150.0 Estimated GFR (Non- 141.1 BUN/Creatinine Ratio 17.6 Random Glucose 173 mg/dl Calcium Level 8.5 mg/dl Phosphorus Level 2.8 mg/dl Magnesium Level 2.1 mg/dl Total Bilirubin 0.2 mg/dl Aspartate Amino Transf (AST/SGOT) 27 U/L Alanine Aminotransferase (ALT/SGPT) 42 U/L Alkaline Phosphatase 150 U/L Total Protein 6.0 gm/dl Albumin 2.2 gm/dl Globulin 3.8 gm/dl Albumin/Globulin Ratio 0.6 Lipase 82 U/L Test 11/11/17 11:24 Bedside Glucose 164 mg/dl Assessment and Plan 32 year-old man with IDDM type I since he was 18 years old. Has chronic diarrhea presented to ED with vomiting and UTI. T1DM w/ hyperglycemia- hgbA1c 12.2%: - Outpatient regimen: Humalog sliding scale, 12-15 u w/ each meal - Pharmacy consulted for glycemic management- Lantus 15 u daily and BSG ACHS w/ ISS - deflash and wash operator consulted UTI POA: IV Rocephin pending UCx N/V, acute on chronic diarrhea, ?secondary to uncontrolled DM vs infectious vs viral process: - Influenza negative - IV Zofran PRN for nausea - BCx pending - C.diff negative; Stool cultures and Giardia pending - Floranex 4 tabs TID - Stool culture, fecal fat, H. pylori ag, celiac panel all negative in the past for diarrhea workup - Per records, had negative colonoscopy a few years ago and possible PUD on EGD Gastritis, GERD w/ thickening of esophagus on CT scan: IV Pepcid Chronic anemia- baseline hgb 10.0- STABLE DVT prophylaxis: Lovenox SQ daily Code status: LEVEL I, FULL Dispo: Discharge to home once medically stable, hopefully in the next 1-2 days- no discharge needs anticipated
[2017-11-11] MEDS ORDERED: VANCOMYCIN CONSULT ACTIVE PRN (13:30)
--- NOTE | 2017-11-11 13:36 | Pharmacy Progress Note ---
Pharmacy Glycemic Short Note 2 Date of Service Nov 11, 2017. OUTPATIENT ANTIDIABETIC REGIMEN: * Humalog 10-15 units with lunch and dinner Test 11/10/17 07:54 Hemoglobin A1c 12.2 % (4.5-5.6) H Test 11/10/17 14:40 11/10/17 16:46 11/10/17 19:38 11/11/17 07:18 Bedside Glucose 359 mg/dl (70-99) 178 mg/dl (70-99) 135 mg/dl (70-99) 175 mg/dl (70-99) Test 11/11/17 07:47 11/11/17 11:24 Random Glucose 173 mg/dl (70-99) Bedside Glucose 164 mg/dl (70-99) ASSESSMENT: * A1c resulted today, 12.2%, will continue goal range of 140-180mg/dl as EAG = 303mg/dl at home * Blood sugars at goal, no changes needed today * Pt remains on IV Rocephin for complicated UTI PLAN FOR INPATIENT GLYCEMIC CONTROL: * Basal insulin * Lantus 15 units SQ daily * Bolus insulin * NovoLog per scale ACHS or Q6hrs while NPO * Goal Range: Low 140 mg/dL - High 180 mg/dL * Correction Factor: 45 mg/dL/unit * Nutritional / Prandial insulin per carb ratio of 1 unit per 15 grams CHO consumed PLAN FOR DISCHARGE: * Recommend starting Lantus 15 units daily * Continue Novolog 10-15 units with meals
[2017-11-11] MEDS ORDERED: VANCOMYCIN INJ 1,750 MG in SODIUM CHLORIDE 0.9% 500ML 500 ML IV SCH (14:00)
[2017-11-11] MEDS ORDERED: VANCOMYCIN INJ 1,700 MG in SODIUM CHLORIDE 0.9% 500ML 500 ML IV SCH (14:00)
--- NOTE | 2017-11-11 14:03 | Pharmacy Progress Note ---
Pharmacy Antibiotic Consult Date of Service: Nov 11, 2017. Pharmacy Dosing Scope Pharmacy is consulted to initiate Vancomycin IV dosing therapy, order appropriate labs and adjust drug dose/frequency. Subjective The patient is a 32 year old male admitted on Nov 10, 2017 at 12:29 with complicated UTI and hyperglycemia. Objective Height (Feet): 6 Height (Inches): 0.00 Weight (Kilograms): 68.400 Lab Results (24hrs): Test 11/11/17 06:05 11/11/17 07:18 11/11/17 07:47 11/11/17 11:24 Bedside Glucose 175 mg/dl (70-99) 164 mg/dl (70-99) White Blood Count 8.51 K/uL (4.8-10.8) Red Blood Count 3.68 M/uL (4.7-6.1) Hemoglobin 10.9 g/dL (14.0-18.0) Hematocrit 32.6 % (42-52) Mean Corpuscular Volume 88.6 fL (80-100) Mean Corpuscular Hemoglobin 29.6 pg (25-34) Mean Corpuscular Hemoglobin Concent 33.4 g/dl (32-36) Platelet Count 336 K/uL (130-400) Mean Platelet Volume 8.0 fL (7.4-10.4) Neutrophils (%) (Auto) 65.5 % Lymphocytes (%) (Auto) 21.3 % Monocytes (%) (Auto) 9.0 % Eosinophils (%) (Auto) 3.4 % Basophils (%) (Auto) 0.4 % Neutrophils # (Auto) 5.58 K/uL (1.4-6.5) Lymphocytes # (Auto) 1.81 K/uL (1.2-3.4) Monocytes # (Auto) 0.77 K/uL (0.11-0.59) Eosinophils # (Auto) 0.29 K/uL (0-0.5) Basophils # (Auto) 0.03 K/uL (0-0.2) RDW Standard Deviation 42.0 fL (36.4-46.3) RDW Coefficient of Variation 13.0 % (11.5-14.5) Immature Granulocyte % (Auto) 0.4 % Immature Granulocyte # (Auto) 0.03 K/uL (0.00-0.02) Sodium Level 136 mmol/L (136-145) Potassium Level 3.7 mmol/L (3.5-5.1) Chloride Level 102 mmol/L (98-107) Carbon Dioxide Level 28 mmol/L (21-32) Anion Gap 6.0 mmol/L (3-11) Blood Urea Nitrogen 9 mg/dl (7-18) Creatinine 0.52 mg/dl (0.60-1.40) Est Creatinine Clear Calc Drug Dose 197.3 ml/min Estimated GFR () > 150.0 Estimated GFR (Non- 141.1 BUN/Creatinine Ratio 17.6 (10-20) Random Glucose 173 mg/dl (70-99) Calcium Level 8.5 mg/dl (8.5-10.1) Phosphorus Level 2.8 mg/dl (2.5-4.9) Magnesium Level 2.1 mg/dl (1.8-2.4) Total Bilirubin 0.2 mg/dl (0.2-1) Aspartate Amino Transf (AST/SGOT) 27 U/L (15-37) Alanine Aminotransferase (ALT/SGPT) 42 U/L (12-78) Alkaline Phosphatase 150 U/L (45-117) Total Protein 6.0 gm/dl (6.4-8.2) Albumin 2.2 gm/dl (3.4-5.0) Globulin 3.8 gm/dl (2.5-4.0) Albumin/Globulin Ratio 0.6 (0.9-2) Lipase 82 U/L (73-393) Micro Results: RUN DATE: 11/11/17 [facility] PAGE 1 RUN TIME: 1256 Specimen Inquiry PATIENT: TAWNYA SPAIN NANCY LOC: [id number] U # : [id number] AGE/SX: 32/M ROOM: [facility] REG : 11/10/[address]: Darion Farris MD, PhD : 1985 BED: 1 DIS : STATUS: ADM IN TLOC: SPEC #: [id number] VICKY: 11/10/17 STATUS: RES REQ #: [id number] RECD: 11/10/[address]: Tc Martin D.O. SOURCE: UR, CC ENTR: 11/10/[address]: Jen Turner, Assigned SPDESC: ORDERED: CULTURE URCLEAN Procedure Result Verified Site URINE CULTURE Preliminary 11/11/17-1256 Organism 1 STAPHYLOCOCCUS AUREUS COLONY COUNT >100,000 CFU/ml SENS SENSITIVITY TO FOLLOW Recent Pertinent Medications Rocephin 1g IV daily x 2 doses Assessment & Plan Complicated UTI, Urine culture growing Staph Aureus, stop Rocephin and begin Vancomycin. Loading dose: Vancomycin 1750 mg (25mg/kg) IV X 1 dose then: Vancomycin 1250 mg (18mg/kg) IV every 6 hours. -pt was on this dose 2 years ago, when renal function and weight were the same, with therapeutic levels, so I will begin here. Goal trough level estimate: between 15 - 20 mcg/mL. Trough level has been ordered for: prior to 0800 dose, this will be after pt has received 3 total doses. Pharmacy will continue to follow and will adjust dose/frequency as necessary. Thank you
[2017-11-11 14:37] VITALS: Ht 182.9 cm; Wt 68.4 kg
[2017-11-11 15:16] VITALS: BP 101/65; PULSE 101; TEMP 36.4; O2SAT 100
[2017-11-11] MEDS: VANCOMYCIN INJ 1,250 MG in SODIUM CHLORIDE 0.9% 250ML 250 ML IV SCH (19:57)
[2017-11-11] MEDS: ENOXAPARIN 40 MG/0.4 ML SYR SQ SCH (21:26)
[2017-11-11 23:29] VITALS: BP 118/77; PULSE 94; TEMP 37.7; O2SAT 97
[2017-11-12] MEDS: VANCOMYCIN INJ 1,250 MG in SODIUM CHLORIDE 0.9% 250ML 250 ML IV SCH ×3 (01:57→13:56)
[2017-11-12] MEDS: FAMOTIDINE IV INJ 20 MG in SYRINGE 3 ML IV SCH ×2 (04:47→15:48)
[2017-11-12 07:23] VITALS: BP 138/88; PULSE 96; TEMP 36.6; O2SAT 99
[2017-11-12] MEDS ORDERED: VANCOMYCIN TROUGH ONE (07:30)
[2017-11-12] MEDS: LACTOBACILLUS ACIDOPHILUS (FLORANEX) TAB PO SCH ×3 (08:07→16:37)
[2017-11-12] MEDS: INSULIN ASPART 100 UNITS/ML 3 ML PEN SC SCH ×4 (08:21→21:27)
[2017-11-12] MEDS: INSULIN GLARGINE SOLOSTAR 100 UNITS/ML 3 ML PEN SC SCH (08:22)
[2017-11-12] MEDS ORDERED: INSULIN GLARGINE SOLOSTAR 100 UNITS/ML 3 ML PEN SC ONE (08:30)
--- NOTE | 2017-11-12 10:15 | DIAGNOSTIC IMAGING REPORT ---
(RENAL)RETROPERITON COMP HISTORY: Flank pain uti, pyelo, to see stone /blockage? COMPARISON: CT 11/10/2017 FINDINGS: Right kidney: Maximum dimension 14.8 cm. Mild fullness of renal pelvis. No evidence for kamlesh hydronephrosis. Normal corticomedullary differentiation and cortical thickness. Left kidney: Maximum dimension 14.1 cm. Mild fullness of the renal pelvis. No evidence for kamlesh hydronephrosis. Normal corticomedullary differentiation and cortical thickness. Bladder: No bladder wall thickening. The bilateral ureteral jets were identified. IMPRESSION: Mild fullness of the renal pelvis bilaterally. No evidence for hydronephrosis. The above report was generated using voice recognition software. It may contain grammatical, syntax or spelling errors. Electronically signed by: Lucas Olivarez M.D. 11/12/2017 10:14 AM Dictated Date/Time: 11/12/2017 10:12 AM
--- NOTE | 2017-11-12 12:20 | Urology Consultation ---
History General Date of Service: Nov 12, 2017. Chief Complaint: UTI Primary Care Physician: Jaz Bates D.O. Pt seen a urologist before?: No History of Present Illness 32 yo male admitted to [facility] with c/o complicated UTI. The pt reports several days of dysuria and n/v. He is a type 1 diabetic, and reports his glucose had been in the 300s prior to admission. Blood cultures preliminarily negative. UC&S preliminarily growing staph aureus. The pt reports a hx of 1 other UTI in the past. CT findings showing some dilation of the left ureter and pervesicular stranding without evidence for stone. Imaging Imaging: CT, Ultrasound Laboratory Last 24 Hours Test 11/11/17 16:12 11/11/17 20:31 11/12/17 07:48 11/12/17 08:10 Bedside Glucose 224 mg/dl 170 mg/dl 267 mg/dl Vancomycin Level Trough 14.8 mcg/ml Test 11/12/17 11:40 Bedside Glucose 88 mg/dl Problem List Medical Problems: (1) Hyperglycemia Status: Acute (2) Type 1 diabetes Status: Acute (3) UTI (urinary tract infection) Status: Acute (4) Vomiting Status: Acute Past History diabetes (IDDM) Past Surgical History: no surgical history Family History family hx of DMI in father at the age of 18 Social History Hx Tobacco Use In Past Year?: No Smoking: non-smoker Alcohol: no current use Drug use: none Marital status: single Housing status: lives with family Occupation status: employed History of MDRO Yes Type of MDRO: MRSA Allergies Coded Allergies: No Known Allergies (Unverified , 11/10/17) Medications Home Medications: Home Meds and Scripts Medications Dose Route/Sig Max Daily Dose Days Date Category Humalog (Insulin Lispro (Human)) 100 Unit/Ml Inj 1 Dose SC UD 11/10/17 Reported Inpatient Medications: Current Inpatient Medications Medications (Trade) Dose Ordered Sig/Stephen Route Start Time Stop Time Status Last Admin Dose Admin Enoxaparin Sodium (Lovenox Inj) 40 mg Q24H SQ 11/10/17 21:00 12/10/17 20:59 11/11/17 21:26 40 MG Acetaminophen (Tylenol Tab) 650 mg Q4H PRN PO 11/10/17 12:30 12/10/17 12:29 Al Hydrox/Mg Hydrox/Simethicone (Maalox Max Susp) 15 ml Q4H PRN PO 11/10/17 12:30 12/10/17 12:29 Magnesium Hydroxide (Milk Of Magnesia Susp) 30 ml Q6H PRN PO 11/10/17 12:30 12/10/17 12:29 Polyethylene (Miralax Powder Packet) 17 gm DAILY PRN PO 11/10/17 12:30 12/10/17 12:29 Zolpidem Tartrate (Ambien Tab) 5 mg HSZ PRN PO 11/10/17 12:30 12/10/17 12:29 Ondansetron HCl (Zofran Inj) 4 mg Q6H PRN IV 11/10/17 12:30 12/10/17 12:29 Insulin Aspart (novoLOG ASPART) SLIDING SCALE If C... ACHS SC 11/10/17 14:30 12/10/17 14:29 11/12/17 08:21 4 UNITS Glucose (Glucose 40% Gel) 15-30 GRAMS 15 GRAMS... UD PRN PO 11/10/17 12:30 12/10/17 12:29 Glucose (Glucose Chew Tab) 4-8 Tablets 4 Tabl... UD PRN PO 11/10/17 12:30 12/10/17 12:29 Dextrose (Dextrose 50% 50ML Syringe) 25-50ML OF 50% DW IV FOR... UD PRN IV 11/10/17 12:30 12/10/17 12:29 Glucagon (Glucagon Inj) 1 mg UD PRN SQ 11/10/17 12:30 12/10/17 12:29 Miscellaneous Information (Consult Glycemic Management Pharmacy) 1 ea UD PRN N/A 11/10/17 13:30 12/10/17 13:29 Famotidine 20 mg/ Syringe 5 ml @ 2.5 mls/min Q12H IV 11/10/17 16:00 12/10/17 15:59 11/12/17 04:47 2.5 MLS/MIN Lactobacillus Acidophilus (Floranex Tab) 4 tab TIDM PO 11/10/17 17:00 12/10/17 17:59 11/12/17 11:39 4 TAB Vancomycin HCl 1250 mg/Sodium Chloride 275 ml @ 125 mls/hr Q6H IV 11/11/17 20:00 11/21/17 19:59 11/12/17 08:06 125 MLS/HR Miscellaneous Information (Consult) 1 ea UD PRN N/A 11/11/17 13:30 12/11/17 13:29 Insulin Glargine (Lantus Solostar Pen) 20 units DAILY SC 11/13/17 08:00 12/13/17 07:59 11/12/17 08:22 20 UNITS Review of Systems Review of Systems Constitutional: No fever, No chills Eyes: No blurred vision Neurological: No dizzy Endocrine: No excessive thirst Gastrointestinal: No abdominal pain, No nausea, No vomiting Cardiovascular: No chest pain Respiratory: No shortness of breath Skin: No rash Musculoskeletal: No back pain Male : + painful urination Physical Exam Vital Signs: Vital Signs Past 12 Hours Date Time Temp Pulse Resp B/P (MAP) Pulse Ox O2 Delivery O2 Flow Rate FiO2 11/12/17 08:00 Room Air 11/12/17 07:23 36.6 96 18 138/88 (105) 99 Room Air Physical Exam: General Appearance: no apparent distress Eyes: bilateral eyes normal inspection ENT: hearing grossly normal Neck: no JVD Respiratory/Chest: no respiratory distress, no accessory muscle use Cardiovascular: no JVD Extremities: normal inspection Neurologic/Psychiatric: alert, normal mood/affect, oriented x 3 Skin: normal color Assessment & Plan Assessment & Plan A/P: Complicated UTI AFVSS. Suspect CT and renal u/s findings most consistent with inflammation secondary to UTI. No evidence for obstructing stone on CT. Consider transitioning him to 10-14 days of Bactrim DS prior to d/c home. Will check bladder scans while inpatient to ensure his bladder is emptying well. Place swann catheter for PVR >250ml. Thanks for the consult. Will continue to follow along with primary service.
--- NOTE | 2017-11-12 12:45 | Pharmacy Progress Note ---
Pharmacy Glycemic Short Note 2 Date of Service Nov 12, 2017. OUTPATIENT ANTIDIABETIC REGIMEN: * Humalog 10-15 units with lunch and dinner Test 11/10/17 07:54 Hemoglobin A1c 12.2 % (4.5-5.6) H Test 11/11/17 16:12 11/11/17 20:31 11/12/17 07:48 11/12/17 11:40 Bedside Glucose 224 mg/dl (70-99) 170 mg/dl (70-99) 267 mg/dl (70-99) 88 mg/dl (70-99) ASSESSMENT: * Blood sugars brijesh 100 pts overnight, will increase Lantus dose at this time. * Pt switched from IV Rocephin to IV Vancomycin for complicated UTI, culture resulted MSSA - urology just saw pt, plans to switch patient to Bactrim DS PO and discharge. PLAN FOR INPATIENT GLYCEMIC CONTROL: * Basal insulin - INCREASE * Lantus 20 units SQ daily * Bolus insulin * NovoLog per scale ACHS or Q6hrs while NPO * Goal Range: Low 140 mg/dL - High 180 mg/dL * Correction Factor: 45 mg/dL/unit * Nutritional / Prandial insulin per carb ratio of 1 unit per 15 grams CHO consumed PLAN FOR DISCHARGE: * Recommend starting Lantus 20 units daily * Continue Novolog 10-15 units with meals
--- NOTE | 2017-11-12 15:39 | Pharmacy Progress Note ---
Pharmacy Abx Dose Short Note Date of Service Nov 12, 2017. Assessment & Plan Assessment 32 year old male receiving IV Vancomycin for treatment of MSSA in urine. Pt does have history of MRSA. Pt can be transitioned to Bactrim DS for 10-14 days of total antimicrobial therapy, Dr Farris would like to continue IV antibiotics at this time. Day # 3 of antimicrobial therapy. Plan Vancomycin * Trough level of 14.8 mcg/mL is therapeutic after 3 total doses of IV Vancomycin. * Continue dose of 1250 mg IV every 6 hours * Goal trough level for UTI : 15 to 20 mcg/mL * Trough level ordered for: 11/13/17 prior to 0800 dose to ensure patient remains therapeutic. Pharmacy will continue to follow and will adjust dose/frequency as necessary. Thank you.
[2017-11-12 16:01] VITALS: BP 121/79; PULSE 93; TEMP 36.7; O2SAT 98
--- NOTE | 2017-11-12 16:28 | Progress Note ---
Subjective Date of Service: Nov 12, 2017. Subjective Pt evaluation today including: conversation w/ patient, conversation w/ family , physical exam, chart review, lab review, review of studies, conversation w/ brand sales consultant, review of inpatient medication list feeling a little better, tolerated diet, but mild nausea, no vomiting, denies spiking fever, still report left lower pain, Problem List Medical Problems: (1) Hyperglycemia Status: Acute (2) Type 1 diabetes Status: Acute (3) UTI (urinary tract infection) Status: Acute (4) Vomiting Status: Acute Review of Systems Constitutional: + weakness, + fatigue, No fever, No chills, No sweats, No weight loss, No problem reported Eyes: No worsening of vision, No eye pain, No redness, No discharge, No diplopia ENT: No hearing loss, No unusual epistaxis, No nasal symptoms, No sore throat, No tinnitus, No dental problems, No trouble swallowing Respiratory: No cough, No sputum, No wheezing, No shortness of breath, No dyspnea on exertion, No dyspnea at rest, No hemoptysis Cardiac: No chest pain, No orthopnea, No PND, No edema, No claudication, No palpitations Abdomen: + pain, No nausea, No vomiting, No diarrhea, No constipation Musculoskeletal: No joint pain, No muscle pain, No swelling, No calf pain Male : + dysuria, No urinary frequency, No incontinence, No nocturia more than once/night, No slowing stream, No hematuria Neurologic: No memory loss, No paralysis, No weakness, No numbness/tingling, No vertigo, No balance problems Psychiatric: No depression symptoms, No anhedonism, No anxiety, No insomnia, No substance abuse Heme: No abnormal bleeding/bruising, No clotting problems, No swollen lymph nodes, No night sweats Endo: No fatigue, No excessive thirst, No excessive urination Skin: No rash, No itch, No new/changing skin lesions, No color change, No bleeding Objective Vital Signs Date Time Temp Pulse Resp B/P (MAP) Pulse Ox O2 Delivery O2 Flow Rate FiO2 11/12/17 16:01 36.7 93 20 121/79 (93) 98 Room Air 11/12/17 16:00 Room Air 11/12/17 08:00 Room Air 11/12/17 07:23 36.6 96 18 138/88 (105) 99 Room Air 11/11/17 23:29 37.7 94 19 118/77 (91) 97 Room Air 11/11/17 19:30 BiPAP Physical Exam General Appearance: WD/WN, no apparent distress, + thin Eyes: normal inspection, PERRL, EOMI, sclerae normal ENT: normal ENT inspection, hearing grossly normal, pharynx normal Neck: supple, no adenopathy, thyroid normal, no JVD, no carotid bruits, trachea midline Respiratory/Chest: chest non-tender, normal breath sounds, no respiratory distress, no accessory muscle use, + decreased breath sounds Cardiovascular: regular rate, rhythm, no edema, no gallop, no JVD, no murmur Abdomen: normal bowel sounds, soft, no organomegaly, no pulsatile mass, + pertinent finding (left CVA TD) Extremities: normal range of motion, non-tender, normal inspection, no pedal edema, no calf tenderness, normal capillary refill, pelvis stable Neurologic/Psychiatric: clinical partner II-XII nml as tested, no motor/sensory deficits, alert, normal mood/affect, oriented x 3 Skin: normal color, warm/dry, no rash Lymphatic: no adenopathy Laboratory Results Last 24 Hours Test 11/11/17 20:31 11/12/17 07:48 11/12/17 08:10 11/12/17 11:40 Bedside Glucose 170 mg/dl 267 mg/dl 88 mg/dl Vancomycin Level Trough 14.8 mcg/ml Assessment and Plan 32 year-old man with: UTI and pyelonephritis POA: was on IV Rocephin which was changed to Vanco because history of MRSA in urine culture, saw pt: Suspect CT and renal u/s findings most consistent with inflammation secondary to UTI. No evidence for obstructing stone on CT. they recs transitioning him to 10-14 days of Bactrim DS prior to d/c home, abx changed per : check bladder scans while inpatient to ensure his bladder is emptying well. Place swann catheter for PVR >250ml. for hx of gastritis, GERD w/ thickening of esophagus on CT scan, continue IV Pepcid , discussed with patient about the care plan Uncontrolled T1DM w/ hyperglycemia- hgbA1c 12.2%, DM education, pharmacy consult , I personally counselling him as well about medication compliance. may DC home tomorrow if tolerated oral abx, and if continue doing well Continued [facility] stay due to: home environment unsafe for pt Discharge planning: home
[2017-11-12] MEDS: ENOXAPARIN 40 MG/0.4 ML SYR SQ SCH (21:24)
[2017-11-12] MEDS: SULFAMETHOXAZOLE/TRIMETHOPRIM DS 800/160MG TAB PO SCH (22:27)
[2017-11-13 00:11] VITALS: BP 146/98; PULSE 89; TEMP 36.8; O2SAT 98
[2017-11-13 07:30] VITALS: BP 146/98; PULSE 82; TEMP 36.7; O2SAT 99
[2017-11-13] MEDS ORDERED: VANCOMYCIN TROUGH ONE (07:30)
[2017-11-13] MEDS: LACTOBACILLUS ACIDOPHILUS (FLORANEX) TAB PO SCH ×3 (07:32→17:36)
[2017-11-13] MEDS: SULFAMETHOXAZOLE/TRIMETHOPRIM DS 800/160MG TAB PO SCH ×2 (07:32→20:37)
[2017-11-13 08:03] LABS: HEMATOCRIT 34.8 % (42-52); HEMOGLOBIN 11.4 g/dL (14.0-18.0); MEAN CELL VOLUME 89.7 fL (80-100); MEAN CORPUSCULAR HEMOGLOBIN 29.4 pg (25-34); MEAN CORPUSCULAR HGB CONC 32.8 g/dl (32-36); MEAN PLATELET VOLUME 8.3 fL (7.4-10.4); PLATELET COUNT 378 K/uL (130-400); RED CELL DISTRIBUTION WIDTH CV 12.7 % (11.5-14.5); RED CELL DISTRIBUTION WIDTH SD 41.7 fL (36.4-46.3); WHITE BLOOD COUNT 6.28 K/uL (4.8-10.8)
[2017-11-13 08:32] LABS: CREATININE 0.57 mg/dl (0.60-1.40)
[2017-11-13] MEDS: INSULIN ASPART 100 UNITS/ML 3 ML PEN SC SCH ×4 (08:42→20:39)
--- NOTE | 2017-11-13 10:28 | Progress Note ---
Progress Note Date of Service Nov 13, 2017. Progress Note Patient's afebrile vital signs are stable. He has no complaints. Says he is voiding okay. I reviewed his CT scan and ultrasound appears that he has some mild left hydronephrosis I would check a postvoid residual with the bladder scanner to make sure he is emptying okay Continue his oral antibiotics. He says he is tolerating them okay.
--- NOTE | 2017-11-13 15:17 | Pharmacy Progress Note ---
Glycemic: Assessment & Plan Date of Service Nov 13, 2017. Assessment & Plan The patient is currently receiving ~30 units of insulin per day. BSGs ranging 88 - 226 mg/dl over the past 24hrs. * Basal insulin: Lantus 20 units every 24 hours given in the morning * Correctional Insulin: Novolog Correction per scale ACHS Goal Range: Low 120 mg/dL - High 150 mg/dL Correction Factor: 45 mg/dL/unit * Prandial insulin: Per carb ratio of 1 unit per 13 grams CHO consumed BSGs continue to improve, no changes needed to inpatient regimen at this time. Pharmacy will continue to monitor patient daily and write orders per [facility] inpatient glycemic control protocol. Thanks. * Please note that the plan above was derived based on current level of insulin resistance and hospital stress. These recommendations are appropriate for inpatient admission only. Plan of care upon discharge will need to be reassessed to avoid potential outpatient hypo/hyperglycemia.
[2017-11-13 15:24] VITALS: BP 115/74; PULSE 90; TEMP 36.5; O2SAT 100
[2017-11-13] MEDS: ENOXAPARIN 40 MG/0.4 ML SYR SQ SCH (20:37)
--- NOTE | 2017-11-13 23:55 | Progress Note ---
Subjective Date of Service: Nov 13, 2017. Subjective Pt evaluation today including: conversation w/ patient, conversation w/ family , physical exam, chart review, lab review, review of studies, review of inpatient medication list Pain: no pain Voiding: no voiding problems Patient's afebrile vital signs are stable. He has no complaints. Pt says he is voiding okay. Problem List Medical Problems: (1) Hyperglycemia Status: Acute (2) Type 1 diabetes Status: Acute (3) UTI (urinary tract infection) Status: Acute (4) Vomiting Status: Acute Review of Systems All Other Systems: Reviewed and Negative Medications Medications (Trade) Dose Ordered Sig/Stephen Route Start Time Stop Time Status Last Admin Dose Admin Insulin Glargine (Lantus Solostar Pen) 20 units DAILY SC 11/13/17 08:00 12/13/17 07:59 11/12/17 08:22 20 UNITS Objective Vital Signs Date Time Temp Pulse Resp B/P (MAP) Pulse Ox O2 Delivery O2 Flow Rate FiO2 11/13/17 16:00 Room Air 11/13/17 15:24 36.5 90 16 115/74 (88) 100 Room Air 11/13/17 08:00 Room Air 11/13/17 07:30 36.7 82 16 146/98 (114) 99 Room Air 11/13/17 00:11 36.8 89 18 146/98 (114) 98 Room Air 11/13/17 00:00 Room Air Physical Exam Comments: General Appearance: WD/WN, no apparent distress, + thin Eyes: normal inspection, PERRL, EOMI, sclerae normal ENT: normal ENT inspection, hearing grossly normal, pharynx normal Neck: supple, no adenopathy, thyroid normal, no JVD, no carotid bruits, trachea midline Respiratory/Chest: chest non-tender, normal breath sounds, no respiratory distress, no accessory muscle use, + decreased breath sounds Cardiovascular: regular rate, rhythm, no edema, no gallop, no JVD, no murmur Abdomen: normal bowel sounds, soft, no organomegaly, no pulsatile mass, + pertinent finding (left CVA TD) Extremities: normal range of motion, non-tender, normal inspection, no pedal edema, no calf tenderness, normal capillary refill, pelvis stable Neurologic/Psychiatric: plasticator II-XII nml as tested, no motor/sensory deficits, alert, normal mood/affect, oriented x 3 Skin: normal color, warm/dry, no rash Lymphatic: no adenopathy Laboratory Results Last 24 Hours Test 11/13/17 07:16 11/13/17 07:43 11/13/17 11:43 11/13/17 16:48 White Blood Count 6.28 K/uL Red Blood Count 3.88 M/uL Hemoglobin 11.4 g/dL Hematocrit 34.8 % Mean Corpuscular Volume 89.7 fL Mean Corpuscular Hemoglobin 29.4 pg Mean Corpuscular Hemoglobin Concent 32.8 g/dl RDW Standard Deviation 41.7 fL RDW Coefficient of Variation 12.7 % Platelet Count 378 K/uL Mean Platelet Volume 8.3 fL Creatinine 0.57 mg/dl Est Creatinine Clear Calc Drug Dose 180.0 ml/min Estimated GFR () > 150.0 Estimated GFR (Non- 135.9 Bedside Glucose 162 mg/dl 226 mg/dl 295 mg/dl Test 11/13/17 20:03 Bedside Glucose 192 mg/dl Assessment and Plan 32 year-old man with: UTI and pyelonephritis POA: was on IV Rocephin which was changed to Vanco because history of MRSA in urine culture, saw pt: Suspect CT and renal u/s findings most consistent with inflammation secondary to UTI. No evidence for obstructing stone on CT. they recs transitioning him to 10-14 days of Bactrim DS prior to d/c home, abx changed per : check bladder scans while inpatient to ensure his bladder is emptying well. Place swann catheter for PVR >250ml. for hx of gastritis, GERD w/ thickening of esophagus on CT scan, continue IV Pepcid , discussed with patient about the care plan Uncontrolled T1DM w/ hyperglycemia- hgbA1c 12.2%, DM education, pharmacy consult , I personally counselling him as well about medication compliance. -- continue MDI as per pharmacy Continued [facility] stay due to: home environment unsafe for pt Discharge planning: home
[2017-11-14 00:28] VITALS: BP 130/87; PULSE 88; TEMP 36.8; O2SAT 99
[2017-11-14 07:32] VITALS: BP 106/72; PULSE 88; TEMP 36.4; O2SAT 100
[2017-11-14] MEDS: SULFAMETHOXAZOLE/TRIMETHOPRIM DS 800/160MG TAB PO SCH (07:43)
[2017-11-14] MEDS: LACTOBACILLUS ACIDOPHILUS (FLORANEX) TAB PO SCH ×2 (07:44→12:04)
[2017-11-14] MEDS: INSULIN ASPART 100 UNITS/ML 3 ML PEN SC SCH ×2 (08:46→12:45)
[2017-11-14] MEDS: INSULIN GLARGINE SOLOSTAR 100 UNITS/ML 3 ML PEN SC SCH (08:47)
[2017-11-14] MEDS ORDERED: SULF-302 PO (11:48)
[2017-11-14] MEDS ORDERED: INSDGIPEN SC (11:48)
--- NOTE | 2017-11-14 11:49 | Discharge Instructions ---
Discharge Instructions Date of Service Nov 14, 2017. Admission Reason for Admission: Complicated Uti Discharge Discharge Diagnosis / Problem: UTI Discharge Goals Goal(s): Decrease discomfort, Improve function, Improve disease control, Diagnostic testing, Therapeutic intervention, Prevent Disease Progression Activity Recommendations Activity Limitations: resume your previous activity . Current Hospital Diet Patient's current hospital diet: Diabetes Type 1 Diet Discharge Diet Recommended Diet: Diabetes Type 2 Diet Procedures Procedures Performed: None Pending Studies Studies pending at discharge: no Laboratory Results Hemoglobin A1c Test 11/10/17 07:54 Range/Units Estimated Average Glucose 303 mg/dl Hemoglobin A1c 12.2 H 4.5-5.6 % Medical Emergencies . Who to Call and When: Medical Emergencies: If at any time you feel your situation is an emergency, please call 911 immediately. . Non-Emergent Contact Non-Emergency issues call your: Primary Care Provider Call Non-Emergent contact if: temperature is above 101, your pain is worsening . . "Provider Documentation" section prepared by Hannah Begum .
--- NOTE | 2017-11-14 11:56 | Discharge Summary ---
Discharge Summary Date of Service Nov 14, 2017. Discharge Summary Admission Date: Nov 10, 2017 at 12:29 Discharge Date: Nov 14, 2017 Principal Diagnosis: Complicated UTI Problems/Secondary Diagnoses: Uncontrolled type 2 DM Procedures: none Consultations: none Medication Reconciliation New Medications: Insulin Glargine (Lantus Solostar) 100 Unit/Ml Inj 20 UNITS SC DAILY for 30 Days, #12 ML 0 Refills Sulfamethoxazole-Trimethoprim (Smz-Tmp Ds) 1 Tab Tab 1 TAB PO Q12 for 7 Days, #14 TAB Continued Medications: Insulin Lispro (Human) (Humalog) 100 Unit/Ml Inj 1 DOSE SC UD Referrals At Discharge Follow up Referrals: Family Practice Referral - Within 1-2 Weeks with Jaz Bates D.O. Discharge Exam Patient is seen and examined by me. Pt is making good amount of urine, denies fever, chills, rigors and sweats. Pt denies any pain in the lumbar region. His urine output improved. Review of Systems: Constitutional: No fever, No chills, No sweats, No weight loss, No weakness , No fatigue Respiratory: No cough, No sputum, No wheezing Cardiovascular: No chest pain, No orthopnea, No edema, No claudication Abdomen: No pain, No nausea, No vomiting, No diarrhea, No constipation Genitourinary - Male: No hematuria, No dysuria, No urinary frequency, No urinary urgency, No urinary retention, No urinary incontinence Endocrine: No fatigue Hematologic / Lymphatic: No abnormal bleeding/bruising Integumentary: No rash Physical Exam: General Appearance: WD/WN, no apparent distress Eyes: normal inspection, EOMI Respiratory/Chest: lungs clear, normal breath sounds, no respiratory distress Cardiovascular: regular rate, rhythm, no edema, no gallop Abdomen / GI: normal bowel sounds, non tender, soft, no organomegaly, no pulsatile mass, normal rectal exam, occult blood negative Extremities: normal inspection, no calf tenderness, no pedal edema Neurologic/Psychiatric: no motor/sensory deficits, alert, normal mood/affect , oriented x 3 Skin: no rash Lymphatic: no adenopathy Hospital Course 32 year-old man with: UTI and pyelonephritis POA: was on IV Rocephin which was changed to Vanco because history of MRSA in urine culture, saw pt: Suspect CT and renal u/s findings most consistent with inflammation secondary to UTI. No evidence for obstructing stone on CT. they recs transitioning him to 10-14 days of Bactrim DS prior to d/c home, abx changed per : check bladder scans while inpatient to ensure his bladder is emptying well. Place swann catheter for PVR >250ml. for hx of gastritis, GERD w/ thickening of esophagus on CT scan, continue IV Pepcid , discussed with patient about the care plan Uncontrolled T1DM w/ hyperglycemia- hgbA1c 12.2%, DM education, pharmacy consult , I personally counselling him as well about medication compliance. -- continue MDI as per pharmacy We advise patient to continue with Bactrim as prescribed to finish the entire course and follow up with pcp for Dm and possible out patient referral to endocrine for Dm mangement as well as urology. Total Time Spent: Greater than 30 minutes This includes examination of the patient, discharge planning, medication reconciliation, and communication with other providers. Discharge Instructions Please refer to the electronic Patient Visit Report (Discharge Instructions) for additional information. Additional Copies To Jaz Bates D.O.
[2017-11-14 12:11] VITALS: BP 106/72; PULSE 88; TEMP 36.4; O2SAT 100
--- NOTE | 2017-11-14 12:53 | Progress Note ---
Progress Note Date of Service Nov 14, 2017. Progress Note Patient remains afebrile vital signs are stable No complaints offered Says he is voiding without difficulty Blood sugars remain elevated Assessment Urinary tract infection Would complete a 10 day course of antibiotics the organism is sensitive to would also check a bladder scan to make sure the patient is emptying his bladder
== END 2017-11-14 13:00 | disposition home or self-care (01) | DRG 638 ==
LOC: C.EDB 07:23 → C.MS4W 12:29 → ENRESERV 12:54
PROVIDERS: ADMIT Internal Medicine; ATTEND Hospitalist
DX: E10.65 Type 1 diabetes mellitus with hyperglycemia (principal); N13.6 Pyonephrosis; N39.0 Urinary tract infection, site not specified; B95.62 Methicillin resistant Staphylococcus aureus infection as the cause of diseases classified elsewhere; K29.70 Gastritis, unspecified, without bleeding; K20.9 Esophagitis, unspecified; K21.9 Gastro-esophageal reflux disease without esophagitis; Z51.81 Encounter for therapeutic drug level monitoring; Z86.14 Personal history of Methicillin resistant Staphylococcus aureus infection; Z83.3 Family history of diabetes mellitus